=== PATIENT | male | born 1970 | race Caucasian/White ===

== ENCOUNTER → 2018-03-11 15:46 | Outpatient (CLI) | payer OTHER, MEDICAID, SELFPAY | PROVIDERS: Family Provider Family Medicine; PCP Family Medicine; Visit Provider Physician Assistant | DX: R39.9 Unspecified symptoms and signs involving the genitourinary system (principal) | CPT/HCPCS: 87077; 87086; 87147 ==

== ENCOUNTER → 2018-04-08 09:46 | Outpatient (CLI) | payer OTHER, MEDICAID, SELFPAY | PROVIDERS: Family Provider Family Medicine; PCP Family Medicine; Visit Provider Family Medicine | DX: R30.0 Dysuria (principal) | CPT/HCPCS: 87077; 87086 ==

== ENCOUNTER → 2018-04-28 09:09 | Outpatient (CLI) | payer OTHER, MEDICAID, SELFPAY ==
[2018-04-28 10:15] LABS: Add Manual Diff / Slide Review NO; Basophils Percent Auto 0.7 % (0-2); Eosinophils Percent Auto 2.9 % (2-4); Hematocrit 47.6 % (41-53); Hemoglobin 16.3 g/dL (13.5-17.5); Lymphocytes Percent Auto 32.5 % (25-40); Mean Corpuscular HGB Conc 34.4 % (30-36); Mean Corpuscular Hemoglobin 31.1 PG (26-34); Mean Corpuscular Volume 90.6 fL (80-100); Monocytes Percent Auto 8.5 % (3-14); Neutrophils Absolute Auto 4900 /uL (3000-5900); Neutrophils Percent Auto 55.4 % (50-75); Platelet Count 245 X10^3/uL (150-400); Red Blood Cell Count 5.25 X10^6/uL (4.5-5.9); Red Cell Distribution Width 13.2 % (11.6-14.8); White Blood Cell Count 8.9 X10^3/uL (4.5-11.0)
[2018-04-28 10:32] LABS: Alanine Aminotransferase 61 IU/L (21-72); Albumin 4.4 g/dL (3.5-5.0); Albumin Globulin Ratio 1.5 (1.0-2.8); Alkaline Phosphatase 76 U/L (38-126); Aspartate Aminotransferase 35 IU/L (17-59); BUN Creatinine Ratio 18.9 (6-22); Bilirubin Total 0.6 mg/dL (0.2-1.3); Blood Urea Nitrogen 17 mg/dL (9-20); Calcium 9.4 mg/dL (8.4-10.2); Carbon Dioxide 28 mmol/L (22-32); Chloride 101 mmol/L (98-107); Cholesterol 219 mg/dL (140-199); Estimated Glomerular Filt Rate > 60.0 mL/min (>60); Glucose 137 mg/dL (70-100); HDL Cholesterol 30 mg/dL (40-60); HEMOLYSIS 18 (0-50); LDL Cholesterol Calculated 133 mg/dL (<100); Potassium 4.6 mmol/L (3.4-5.1); Sodium 141 mmol/L (137-145); Total Protein 7.4 g/dL (6.3-8.2); Triglycerides 280 mg/dL (35-150)
[2018-04-28 11:01] LABS: Prostate Specific Antigen Scrn 0.276 ng/mL (0.1-4.0)
[2018-04-28 11:38] LABS: Thyroid Stimulating Hormone 1.17 uIU/mL (0.47-4.68)
== END ==
PROVIDERS: PCP Family Medicine; Visit Provider Family Medicine
DX: I10 Essential (primary) hypertension (principal)
CPT/HCPCS: 36415; 80053; 80061; 84443; 85025; G0103

== ENCOUNTER → 2018-08-03 08:49 | Outpatient (CLI) | payer OTHER, MEDICAID, SELFPAY ==
--- NOTE | 2018-08-03 08:51 | DI.US.S_ITS ---
PROCEDURE: US SCROTUM INDICATIONS: SCROTAL SWELLING TECHNIQUE: Real-time scanning was performed of the scrotum and testicles, with image documentation. Color and pulse Doppler interrogation was performed of both testicles. COMPARISON: None. FINDINGS: Right: Testicle measures 5.0 x 3.0 x 2.5 cm, and appears homogenous in echotexture. Epididymis is normal in overall size and morphology. There is a slightly superior to varicocele. Overlying scrotal skin is thickened, measuring up to 2.2 cm. Left: Testicle measures 4.8 x 3.1 x 2.5 cm, and appears homogeneous in echotexture. Epididymis is normal in overall size and morphology. There is a small hydrocele. No varicocele.. Overlying scrotal skin is thickened, measuring up to 1.5 cm. Doppler: Color and pulse Doppler demonstrate patent and symmetric arterial flow in both testicles. No definite increased vascularity within the testicles or scrotal skin. IMPRESSION: 1. Nonspecific scrotal skin thickening bilaterally without definite increased vascularity. The finding is nonspecific and the differential includes edema secondary to a nonspecific systemic process or a low-grade or atypical infection among other etiologies. Recommend correlation clinically. 2. Small bilateral hydroceles. 3. No definite evidence of epididymoorchitis. Dictated by: Abdiel Finney M.D. on 08/03/2018 at 9:56 Approved by: Abdiel Finney M.D. on 08/03/2018 at 10:02
== END ==
PROVIDERS: Family Provider Family Medicine; PCP Family Medicine; Visit Provider Physician Assistant
DX: N50.89 Other specified disorders of the male genital organs (principal); N43.3 Hydrocele, unspecified
CPT/HCPCS: 76870

== ENCOUNTER → 2018-11-11 06:51 | Outpatient (CLI) | payer OTHER, MEDICAID, SELFPAY ==
[2018-11-11 07:37] LABS: Hemoglobin A1C% w Est Avg Glu 8.1 % (4.0-6.0)
[2018-11-11 07:41] LABS: BUN Creatinine Ratio 21.1 (6-22); Blood Urea Nitrogen 19 mg/dL (9-20); Calcium 9.3 mg/dL (8.4-10.2); Carbon Dioxide 26 mmol/L (22-32); Chloride 99 mmol/L (98-107); Cholesterol 224 mg/dL (140-199); Estimated Glomerular Filt Rate > 60.0 mL/min (>60); Glucose 196 mg/dL (70-100); HDL Cholesterol 26 mg/dL (40-60); HEMOLYSIS 16 (0-50); Potassium 4.2 mmol/L (3.4-5.1); Sodium 137 mmol/L (137-145); Triglycerides 481 mg/dL (35-150)
== END ==
PROVIDERS: PCP Family Medicine; Visit Provider Family Medicine
DX: I10 Essential (primary) hypertension (principal)
CPT/HCPCS: 36415; 80048; 80061; 83036

== ENCOUNTER → 2018-12-15 19:45 | Outpatient (CLI) | payer OTHER, MEDICAID, SELFPAY | PROVIDERS: PCP Family Medicine; Visit Provider Physician Assistant | DX: N30.00 Acute cystitis without hematuria (principal) | CPT/HCPCS: 87077; 87086; 87186 ==

== ENCOUNTER → 2019-03-22 08:31 | Outpatient (CLI) | payer OTHER, MEDICAID, SELFPAY ==
[2019-03-22 11:00] LABS: Hemoglobin A1C% w Est Avg Glu 8.1 % (4.0-6.0)
[2019-03-22 11:42] LABS: Cholesterol 217 mg/dL (140-199); HDL Cholesterol 25 mg/dL (40-60); LDL Cholesterol Calculated 120 mg/dL (<100); Triglycerides 359 mg/dL (35-150)
== END ==
PROVIDERS: PCP Family Medicine; Visit Provider Family Medicine
DX: E78.2 Mixed hyperlipidemia (principal)
CPT/HCPCS: 36415; 80061; 83036

== ENCOUNTER → 2019-05-13 08:37 | Outpatient (CLI) | payer OTHER, MEDICAID, SELFPAY ==
[2019-05-13 09:27] LABS: Hemoglobin A1C% w Est Avg Glu 7.7 % (4.0-6.0)
[2019-05-13 09:36] LABS: Blood Urea Nitrogen 19 mg/dL (9-20); Calcium 9.1 mg/dL (8.4-10.2); Carbon Dioxide 30 mmol/L (22-32); Chloride 100 mmol/L (98-107); Cholesterol 172 mg/dL (140-199); Estimated Glomerular Filt Rate > 60.0 mL/min (>60); Glucose 165 mg/dL (70-100); HDL Cholesterol 27 mg/dL (40-60); HEMOLYSIS 21 (0-50); LDL Cholesterol Calculated 98 mg/dL (<100); Potassium 4.4 mmol/L (3.4-5.1); Sodium 136 mmol/L (137-145); Triglycerides 236 mg/dL (35-150)
== END ==
PROVIDERS: PCP Family Medicine; Visit Provider Family Medicine
DX: E78.2 Mixed hyperlipidemia (principal)
CPT/HCPCS: 36415; 80048; 80061; 83036

== ENCOUNTER → 2019-08-02 08:30 | Outpatient (CLI) | payer OTHER, MEDICAID, SELFPAY | PROVIDERS: PCP Family Medicine; Visit Provider Physician Assistant | DX: R30.0 Dysuria (principal) | CPT/HCPCS: 87086 ==

== ENCOUNTER → 2019-08-12 08:21 | Outpatient (CLI) | payer OTHER, MEDICAID, SELFPAY ==
[2019-08-12 09:21] LABS: Blood Urea Nitrogen 18 mg/dL (9-20); Calcium 9.6 mg/dL (8.4-10.2); Carbon Dioxide 26 mmol/L (22-32); Chloride 102 mmol/L (98-107); Estimated Glomerular Filt Rate > 60.0 mL/min (>60); Glucose 147 mg/dL (70-100); HEMOLYSIS < 15 (0-50); Potassium 4.1 mmol/L (3.4-5.1); Sodium 138 mmol/L (137-145)
== END ==
PROVIDERS: PCP Family Medicine; Referring Provider Family Medicine; Visit Provider Family Medicine
DX: E11.9 Type 2 diabetes mellitus without complications (principal)
CPT/HCPCS: 36415; 80048; 83036

== ENCOUNTER → 2019-11-11 07:40 | Outpatient (CLI) | payer OTHER, MEDICAID, SELFPAY ==
[2019-11-11 08:18] LABS: Hemoglobin A1C% w Est Avg Glu 7.5 % (4.0-6.0)
[2019-11-11 08:36] LABS: Blood Urea Nitrogen 20 mg/dL (9-20); Calcium 8.9 mg/dL (8.4-10.2); Carbon Dioxide 26 mmol/L (22-32); Chloride 102 mmol/L (98-107); Cholesterol 166 mg/dL (140-199); Estimated Glomerular Filt Rate > 60.0 mL/min (>60); Glucose 164 mg/dL (70-100); HDL Cholesterol 25 mg/dL (40-60); HEMOLYSIS < 15 (0-50); LDL Cholesterol Calculated 97 mg/dL (<100); Potassium 4.2 mmol/L (3.4-5.1); Sodium 137 mmol/L (137-145); Triglycerides 221 mg/dL (35-150)
== END ==
PROVIDERS: PCP Family Medicine; Referring Provider Family Medicine; Visit Provider Family Medicine
DX: E11.9 Type 2 diabetes mellitus without complications (principal)
CPT/HCPCS: 36415; 80048; 80061; 83036

== ENCOUNTER → 2020-03-07 07:44 | Outpatient (CLI) | payer OTHER, MEDICAID, SELFPAY ==
[2020-03-07 08:50] LABS: Hemoglobin A1C% w Est Avg Glu 7.4 % (4.0-6.0)
[2020-03-07 09:02] LABS: BUN Creatinine Ratio 21.3 (6-22); Blood Urea Nitrogen 19 mg/dL (9-20); Carbon Dioxide 27 mmol/L (22-32); Chloride 102 mmol/L (98-107); Estimated Glomerular Filt Rate > 60.0 mL/min (>60); Glucose 173 mg/dL (70-100); HEMOLYSIS < 15 (0-50); Potassium 4.3 mmol/L (3.4-5.1); Sodium 135 mmol/L (137-145)
[2020-03-07 09:50] LABS: Creatinine Urine Random 108.9 mg/dL
[2020-03-07 09:53] LABS: Microalbumi Creatinin Ratio Ur 6.4 ug/mg CR (<30); Microalbumin Urine Random 0.7 mg/dL (0-1.6)
== END ==
PROVIDERS: PCP Family Medicine; Referring Provider Family Medicine; Visit Provider Family Medicine
DX: E11.9 Type 2 diabetes mellitus without complications (principal)
CPT/HCPCS: 36415; 80048; 82043; 82570; 83036

== ENCOUNTER → 2020-08-10 07:57 | Outpatient (CLI) | payer OTHER, MEDICAID, SELFPAY ==
[2020-08-10 08:35] LABS: Hemoglobin A1C% w Est Avg Glu 7.8 % (4.0-6.0)
[2020-08-10 08:57] LABS: Alanine Aminotransferase 37 IU/L (<50); Albumin Globulin Ratio 1.4 (1.0-2.8); Alkaline Phosphatase 75 U/L (38-126); Aspartate Aminotransferase 27 IU/L (17-59); BUN Creatinine Ratio 22.6 (6-22); Bilirubin Total 0.4 mg/dL (0.2-1.3); Blood Urea Nitrogen 19 mg/dL (9-20); Calcium 9.3 mg/dL (8.4-10.2); Carbon Dioxide 29 mmol/L (22-32); Chloride 103 mmol/L (98-107); Cholesterol 168 mg/dL (140-199); Estimated Glomerular Filt Rate > 60.0 mL/min (>60); Globulin 2.9 g/dL (1.7-4.1); Glucose 185 mg/dL (70-100); HDL Cholesterol 30 mg/dL (40-60); HEMOLYSIS < 15 (0-50); LDL Cholesterol Calculated 91 mg/dL (<100); Sodium 135 mmol/L (137-145); Total Protein 6.9 g/dL (6.3-8.2); Triglycerides 234 mg/dL (35-150)
[2020-08-10 09:29] LABS: TSH w/ Reflex to FT4 1.89 uIU/mL (0.47-4.68)
== END ==
PROVIDERS: PCP Family Medicine; Referring Provider Family Medicine; Visit Provider Family Medicine
DX: E11.9 Type 2 diabetes mellitus without complications (principal); E78.2 Mixed hyperlipidemia; I10 Essential (primary) hypertension; R53.83 Other fatigue
CPT/HCPCS: 36415; 80053; 80061; 83036; 84443

== ENCOUNTER → 2020-11-28 07:23 | Outpatient (CLI) | payer OTHER, MEDICAID, SELFPAY ==
[2020-11-28 08:33] LABS: Hemoglobin A1C% w Est Avg Glu 7.4 % (4.0-6.0)
[2020-11-28 08:53] LABS: Alanine Aminotransferase 40 IU/L (<50); Albumin 3.8 g/dL (3.5-5.0); Albumin Globulin Ratio 1.5 (1.0-2.8); Alkaline Phosphatase 78 U/L (38-126); Aspartate Aminotransferase 29 IU/L (17-59); BUN Creatinine Ratio 23.1 (6-22); Bilirubin Total 0.4 mg/dL (0.2-1.3); Blood Urea Nitrogen 21 mg/dL (9-20); Calcium 9.5 mg/dL (8.4-10.2); Carbon Dioxide 25 mmol/L (22-32); Chloride 103 mmol/L (98-107); Estimated Glomerular Filt Rate > 60.0 mL/min (>60); Globulin 2.6 g/dL (1.7-4.1); Glucose 161 mg/dL (70-100); HEMOLYSIS < 15 (0-50); Potassium 4.4 mmol/L (3.4-5.1); Sodium 137 mmol/L (137-145); Total Protein 6.4 g/dL (6.3-8.2)
== END ==
PROVIDERS: PCP Family Medicine; Referring Provider Family Medicine; Visit Provider Family Medicine
DX: E11.9 Type 2 diabetes mellitus without complications (principal)
CPT/HCPCS: 36415; 80053; 83036

== ENCOUNTER → 2021-02-23 07:43 | Outpatient (CLI) | payer OTHER, MEDICAID, SELFPAY ==
[2021-02-23 09:15] LABS: Hemoglobin A1C% w Est Avg Glu 6.9 % (4.0-6.0)
[2021-02-23 09:21] LABS: Alanine Aminotransferase 40 IU/L (<50); Albumin Globulin Ratio 1.4 (1.0-2.8); Alkaline Phosphatase 58 U/L (38-126); Aspartate Aminotransferase 39 IU/L (17-59); Bilirubin Total 0.7 mg/dL (0.2-1.3); Blood Urea Nitrogen 18 mg/dL (9-20); Calcium 9.3 mg/dL (8.4-10.2); Carbon Dioxide 28 mmol/L (22-32); Chloride 103 mmol/L (98-107); Estimated Glomerular Filt Rate > 60.0 mL/min (>60); Globulin 2.9 g/dL (1.7-4.1); Glucose 169 mg/dL (70-100); HEMOLYSIS 55 (0-50); Potassium 4.5 mmol/L (3.4-5.1); Sodium 136 mmol/L (137-145); Total Protein 6.9 g/dL (6.3-8.2)
== END ==
PROVIDERS: PCP Family Medicine; Referring Provider Family Medicine; Visit Provider Family Medicine
DX: I10 Essential (primary) hypertension (principal); E11.9 Type 2 diabetes mellitus without complications; E78.2 Mixed hyperlipidemia; R53.83 Other fatigue
CPT/HCPCS: 36415; 80053; 83036

== ENCOUNTER → 2021-05-15 15:18 | Outpatient (CLI) | payer OTHER, MEDICAID, SELFPAY ==
--- NOTE | 2021-05-15 15:58 | DI.RAD.S_ITS ---
PROCEDURE: XR CHEST 2V INDICATIONS: Cough TECHNIQUE: 2 views of the chest were acquired. COMPARISON: None. FINDINGS: Surgical changes and devices: None. Lungs and pleura: Pleural interstitial infiltrates are seen. No pleural effusions or pneumothorax. Mediastinum: Mediastinal contours are normal. Heart size is normal. Bones and chest wall: No suspicious bony abnormalities. Soft tissues appear unremarkable. IMPRESSION: Minimal patchy bilateral infiltrates can be seen. Please consider COVID pneumonia. Dictated by: Jose Camarena M.D. on 05/15/2021 at 15:13 Approved by: Jose Camarena M.D. on 05/15/2021 at 15:13
[2021-05-15 16:25] LABS: COVID19 -Nasal RAPID Negative (Negative)
== END ==
PROVIDERS: PCP Family Medicine; Referring Provider Nurse Practitioner Family; Visit Provider Nurse Practitioner Family
DX: Z20.822 Contact with and (suspected) exposure to COVID-19 (principal)
CPT/HCPCS: 71046; 87635

== ENCOUNTER → 2021-06-27 07:51 | Outpatient (CLI) | payer OTHER, MEDICAID, SELFPAY ==
[2021-06-27 08:36] LABS: Hemoglobin A1C% w Est Avg Glu 7.1 % (4.0-6.0)
[2021-06-27 08:46] LABS: Alanine Aminotransferase 65 IU/L (<50); Albumin 4.2 g/dL (3.5-5.0); Albumin Globulin Ratio 1.5 (1.0-2.8); Alkaline Phosphatase 63 U/L (38-126); Aspartate Aminotransferase 37 IU/L (17-59); BUN Creatinine Ratio 19.8 (6-22); Bilirubin Total 0.7 mg/dL (0.2-1.3); Blood Urea Nitrogen 17 mg/dL (9-20); Calcium 9.1 mg/dL (8.4-10.2); Carbon Dioxide 29 mmol/L (22-32); Chloride 102 mmol/L (98-107); Estimated Glomerular Filt Rate > 60.0 mL/min (>60); Globulin 2.8 g/dL (1.7-4.1); Glucose 148 mg/dL (70-100); HEMOLYSIS 25 (0-50); Potassium 4.4 mmol/L (3.4-5.1); Sodium 138 mmol/L (137-145)
== END ==
PROVIDERS: PCP Family Medicine; Referring Provider Family Medicine; Visit Provider Family Medicine
DX: E11.9 Type 2 diabetes mellitus without complications (principal); I10 Essential (primary) hypertension; G89.29 Other chronic pain
CPT/HCPCS: 36415; 80053; 83036

== ENCOUNTER → 2021-12-04 12:13 | Outpatient (CLI) | payer OTHER, MEDICAID, SELFPAY | PROVIDERS: PCP Family Medicine; Visit Provider Physician Assistant | DX: R30.0 Dysuria (principal) | CPT/HCPCS: 81002; 82948; 87077; 87086; 87186 ==

== ENCOUNTER → 2022-01-25 08:26 | Outpatient (CLI) | payer OTHER, MEDICAID, SELFPAY | PROVIDERS: PCP Family Medicine; Visit Provider Nurse Practitioner Family | DX: L98.9 Disorder of the skin and subcutaneous tissue, unspecified (principal) | CPT/HCPCS: 87070; 87147; 87205 ==

== ENCOUNTER → 2022-02-04 07:23 | Outpatient (CLI) | payer OTHER, MEDICAID, SELFPAY ==
[2022-02-04 08:47] LABS: Add Manual Diff / Slide Review NO; Basophils Absolute Auto 100 /uL (0-100); Basophils Percent Auto 0.8 % (0-2); Eosinophils Absolute Auto 300 /uL (0-450); Eosinophils Percent Auto 3.1 % (2-4); Hematocrit 46.8 % (41-53); Hemoglobin 16.1 g/dL (13.5-17.5); Lymphocytes Absolute Auto 3400 /uL (1100-4500); Lymphocytes Percent Auto 34.4 % (25-40); Mean Corpuscular HGB Conc 34.3 % (30-36); Mean Corpuscular Volume 90.4 fL (80-100); Monocytes Absolute Auto 800 /uL (0-900); Monocytes Percent Auto 8.5 % (3-14); Neutrophils Absolute Auto 5300 /uL (1500-7000); Neutrophils Percent Auto 53.2 % (50-75); Platelet Count 259 X10^3/uL (150-400); Red Blood Cell Count 5.18 X10^6/uL (4.5-5.9); Red Cell Distribution Width 13.3 % (11.6-14.8)
[2022-02-04 09:08] LABS: Alanine Aminotransferase 31 IU/L (<50); Albumin 4.1 g/dL (3.5-5.0); Albumin Globulin Ratio 1.4 (1.0-2.8); Alkaline Phosphatase 63 U/L (38-126); Aspartate Aminotransferase 26 IU/L (17-59); BUN Creatinine Ratio 19.3 (6-22); Bilirubin Total 0.6 mg/dL (0.2-1.3); Blood Urea Nitrogen 17 mg/dL (9-20); Calcium 9.1 mg/dL (8.4-10.2); Carbon Dioxide 27 mmol/L (22-32); Chloride 103 mmol/L (98-107); Cholesterol 162 mg/dL (140-199); Estimated Glomerular Filt Rate > 60 mL/min (>60); Globulin 2.9 g/dL (1.7-4.1); Glucose 148 mg/dL (70-100); HDL Cholesterol 27 mg/dL (40-60); HEMOLYSIS < 15 (0-50); LDL Cholesterol Calculated 89 mg/dL (<100); Sodium 137 mmol/L (137-145); Triglycerides 230 mg/dL (35-150)
[2022-02-04 09:09] LABS: Hemoglobin A1C% w Est Avg Glu 7.1 % (4.0-6.0)
[2022-02-04 09:37] LABS: Prostate Specific Antigen Scrn 0.472 ng/mL (0.1-4.0)
[2022-02-04 10:14] LABS: Thyroid Stimulating Hormone 1.73 uIU/mL (0.47-4.68)
== END ==
PROVIDERS: PCP Family Medicine; Referring Provider Family Medicine; Visit Provider Family Medicine
DX: E11.9 Type 2 diabetes mellitus without complications (principal); E78.2 Mixed hyperlipidemia; I10 Essential (primary) hypertension; N40.1 Benign prostatic hyperplasia with lower urinary tract symptoms; R39.14 Feeling of incomplete bladder emptying; E78.5 Hyperlipidemia, unspecified
CPT/HCPCS: 36415; 80053; 80061; 83036; 84443; 85025; G0103

== ENCOUNTER → 2022-06-12 09:09 | Outpatient (CLI) | payer OTHER, MEDICAID, SELFPAY ==
[2022-06-12 10:38] LABS: Influenza A - CEPHEID Flu A NEGATIVE (NEGATIVE); Influenza B - CEPHEID Flu B NEGATIVE (NEGATIVE); Respiratory Syncytial Virus Negative (Negative)
[2022-06-12 10:52] LABS: COVID-19 CEPHEID 4-PLEX PCR Negative (Negative)
== END ==
PROVIDERS: PCP Family Medicine; Referring Provider Nurse Practitioner Family; Visit Provider Nurse Practitioner Family
DX: R30.0 Dysuria (principal); R50.9 Fever, unspecified; Z20.822 Contact with and (suspected) exposure to COVID-19
CPT/HCPCS: 0241U; 81002; 87077; 87086; 87186

== ENCOUNTER → 2022-09-16 15:00 | Outpatient (CLI) | payer OTHER, MEDICAID, SELFPAY | PROVIDERS: PCP Family Medicine; Visit Provider Physician Assistant | DX: N39.0 Urinary tract infection, site not specified (principal) | CPT/HCPCS: 81002; 87077; 87086; 87186 ==

== ENCOUNTER → 2022-10-04 08:01 | Outpatient (CLI) | payer OTHER, MEDICAID, SELFPAY ==
[2022-10-04 08:57] LABS: Add Manual Diff / Slide Review NO; Basophils Absolute Auto 100 /uL (0-100); Basophils Percent Auto 0.7 % (0-2); Eosinophils Absolute Auto 200 /uL (0-450); Lymphocytes Absolute Auto 2500 /uL (1100-4500); Lymphocytes Percent Auto 27.7 % (25-40); Mean Corpuscular HGB Conc 34.1 % (30-36); Mean Corpuscular Hemoglobin 30.8 PG (26-34); Mean Corpuscular Volume 90.4 fL (80-100); Monocytes Absolute Auto 700 /uL (0-900); Monocytes Percent Auto 8.2 % (3-14); Neutrophils Absolute Auto 5500 /uL (1500-7000); Neutrophils Percent Auto 61.4 % (50-75); Platelet Count 234 X10^3/uL (150-400); Red Cell Distribution Width 13.4 % (11.6-14.8)
[2022-10-04 09:36] LABS: Alanine Aminotransferase 30 IU/L (<50); Albumin 3.9 g/dL (3.5-5.0); Albumin Globulin Ratio 1.3 (1.0-2.8); Alkaline Phosphatase 64 U/L (38-126); Aspartate Aminotransferase 25 IU/L (17-59); Bilirubin Total 0.6 mg/dL (0.2-1.3); Blood Urea Nitrogen 17 mg/dL (9-20); Calcium 9.4 mg/dL (8.4-10.2); Carbon Dioxide 25 mmol/L (22-32); Chloride 103 mmol/L (98-107); Cholesterol 172 mg/dL (140-199); Estimated Glomerular Filt Rate > 60 mL/min (>60); Glucose 155 mg/dL (70-100); HDL Cholesterol 33 mg/dL (40-60); HEMOLYSIS < 15 (0-50); LDL Cholesterol Calculated 93 mg/dL (<100); Potassium 4.6 mmol/L (3.4-5.1); Sodium 137 mmol/L (137-145); Total Protein 6.9 g/dL (6.3-8.2); Triglycerides 232 mg/dL (35-150)
[2022-10-04 10:06] LABS: Prostate Specific Antigen 0.264 ng/mL (0.10-4.00)
[2022-10-05 10:19] LABS: Labcorp Hemoglobin (Hb) A1c 7.3 % (4.8-5.6)
== END ==
PROVIDERS: PCP Family Medicine; Referring Provider Family Medicine; Visit Provider Family Medicine
DX: E11.9 Type 2 diabetes mellitus without complications (principal); E78.2 Mixed hyperlipidemia; N40.0 Benign prostatic hyperplasia without lower urinary tract symptoms
CPT/HCPCS: 36415; 80053; 80061; 83036; 84153; 85025

== ENCOUNTER → 2022-11-11 13:16 | Outpatient (CLI) | payer OTHER, MEDICAID, SELFPAY | PROVIDERS: PCP Family Medicine; Visit Provider Registered Nurse | DX: R30.0 Dysuria (principal) | CPT/HCPCS: 81002; 87077; 87086; 87186 ==

== ENCOUNTER 2022-11-14 13:34 | Emergency (ER) | payer OTHER, MEDICAID, SELFPAY ==
[2022-11-14 13:42] VITALS: BP 173/79; PULSE 100; RESP 18; TEMP 37.6; O2SAT 95; BMI 44.9
[2022-11-14 14:53] LABS: Appearance Urine UA CLOUDY; Bilirubin Urine UA 1+ (NEGATIVE); Color Urine UA YELLOW; Glucose Urine UA NEGATIVE (Negative); Ketones Urine UA NEGATIVE (NEGATIVE); Leukocyte Esterase Urine UA 3+ (NEGATIVE); Nitrite Urine UA POSITIVE (Negative); Occult Blood Urine UA 3+ (Negative); Protein Urine UA 3+ (Negative); pH Urine UA 8.5 (4.5-8.0)
[2022-11-14 15:05] LABS: Ictotest Urine Negative (Negative)
[2022-11-14 15:06] LABS: RBC Urine 30-100/HPF (0-5/HPF); Squamous Epithelial Cell Urine 1-5 /HPF (0-5/HPF); WBC Urine >100/HPF (0-5/HPF)
[2022-11-14 15:07] LABS: Bacteria Urine Many (>30); Culture Indicated Urine Specimen Cultured
--- NOTE | 2022-11-14 19:18 | ED_ITS ---
HPI - Male Genitourinary General Chief complaint: Urogenital-Male Stated complaint: Blood in urine, pain Time Seen by Provider: 11/14/22 17:52 Source: patient Mode of arrival: Ambulatory History of Present Illness HPI Narrative: This is a 52-year-old male presents to the emergency department due to continued dysuria for the last 4 days. He was seen at the walk-in clinic 3 days ago and was given a course of Bactrim which he has been taking as prescribed but reports continued symptoms. He is also reporting a small amount of white discharge coming from the tip of his penis. Denies any flank pain, abdominal pain, fevers, nausea, vomiting, or any other concerning signs or symptoms. Related Data Previous Rx's Medication Instructions Recorded blood-glucose meter #1 ea 09/05/20 lancets 33 gauge (BD Ultra Fine #100 ea 09/05/20 Lancets) mupirocin 2 % topical ointment 1 applic topical TID #22 grams 01/25/22 ketoconazole 2 % topical cream 1 applic topical BID #30 grams 02/08/22 blood sugar diagnostic (Blood #100 ea 03/15/22 Glucose Test strips) blood sugar diagnostic (Blood #100 ea 03/15/22 Glucose Test strips) tamsulosin 0.4 mg capsule (Flomax) 0.4 mg PO QDAY #90 caps 04/09/22 clotrimazole 1 % topical cream 1 applic topical BID #45 grams 05/13/22 ondansetron 4 mg disintegrating 4 mg PO Q8H PRN nausea and 06/10/22 tablet vomiting #12 tabs clobetasol 0.05 % topical cream 1 applic topical TID #60 grams 07/11/22 lisinopril 20 mg tablet 20 mg PO QDAY #90 tabs 07/11/22 metformin 1,000 mg tablet 1,000 mg PO BID #180 tabs 07/11/22 mupirocin 2 % topical ointment 1 applic topical TID #15 grams 07/11/22 sulfamethoxazole 800 1 tab PO Q12H #20 tabs 09/16/22 mg-trimethoprim 160 mg tablet (Bactrim DS) albuterol sulfate 90 mcg/actuation See Rx Instructions .Route 10/14/22 aerosol inhaler .COMPLEX #6.7 grams atorvastatin 10 mg tablet See Rx Instructions .Route 10/14/22 .COMPLEX #90 tabs chlorhexidine gluconate 0.12 % 15 ml buccal BID #473 mL 10/14/22 mouthwash hydroxyzine pamoate 50 mg capsule See Rx Instructions .Route 10/14/22 .COMPLEX #90 caps semaglutide 0.25 mg or 0.5 mg (2 0.5 mg (0.8 mL) SUBCUT QWEEK #3 mL 10/14/22 mg/3 mL) subcutaneous pen injector (Ozempic) varenicline 0.5 mg (11)-1 mg (42) See Rx Instructions PO PER PKG DIR 10/14/22 tablets in a dose pack (Chantix #53 ea Starting Month Box) varenicline 1 mg tablet (Chantix 1 mg PO BID #56 tabs 10/14/22 Continuing Month Box) doxycycline hyclate 100 mg capsule 100 mg PO BID #20 caps 10/20/22 hydrocodone 7.5 mg-acetaminophen 1 tab PO QID PRN pain #120 tabs 11/05/22 325 mg tablet sulfamethoxazole 800 1 tab PO BID uti 10 days #20 tabs 11/11/22 mg-trimethoprim 160 mg tablet (Bactrim DS) cefdinir 300 mg capsule 300 mg PO BID #14 caps 11/14/22 cefdinir 300 mg capsule 300 mg PO BID #14 caps 11/14/22 cefdinir 300 mg capsule 300 mg PO Q12H 7 days #14 caps 11/14/22 Allergies Allergy/AdvReac Type Severity Reaction Status Date / Time alprazolam [From XANAX] Allergy Severe VOMTING Verified 11/14/22 13:48 diazepam [From VALIUM] Allergy Severe VOMITING Verified 11/14/22 13:48 lorazepam [LORAZEPAM] Allergy Severe VOMITING Verified 11/14/22 13:48 Review of Systems Review of Systems Narrative: GENERAL: Denies chills, fatigue, malaise, fever, sweats. HEENT: Denies sinus pain, ear pain, sore throat, difficulty swallowing, dizziness. RESPIRATORY: Denies dyspnea, cough, wheezing, hemoptysis, sputum. CARDIOVASCULAR: Denies chest pain, palpitations, orthopnea, edema, GASTROINTESTINAL: Denies nausea, vomiting, abdominal pain, diarrhea, constipation, melena. : Reports urinary frequency and dysuria. Reports penile discharge MUSCULOSKELETAL: denies weakness, joint pain, or bony pain SKIN: Denies rash, skin lesions, or other NEUROLOGIC: Denies weakness, headache, numbness, change in speech, confusion, seizures, incoordination. PSYCHIATRIC: No concerning psychosocial issues. 12 point review of systems is negative except for those stated above Patient History Medical History Anxiety Benign prostatic hyperplasia Cellulitis of right lower extremity Hypertension Osteoarthritis UTI (urinary tract infection) Surgical History No history of previous surgery (10/11/13) Social History Smoking Status: Current every day smoker Tobacco: How many years used: 35 Smokeless tobacco user: chewing tobacco (former ) quit status: not considering quitting alcohol intake: former (stopped 2003) substance use type: former substance user and marijuana (former, stopped 2003) Smoking Status: Current every day smoker alcohol intake frequency: 0-2 drinks per day Substance Use Type: does not use Exam Narrative Exam Narrative: GENERAL: Well-developed patient, in mild distress. HEAD: Atraumatic. Normocephalic. EYES: Pupils equal round and reactive. Extraocular motions intact. No scleral icterus. No injection or drainage. ENT: Nose without bleeding, purulent drainage. Throat without erythema, tonsillar hypertrophy or exudate. Airway patent. NECK: Trachea midline. Non tender CARDIOVASCULAR: Regular rate and rhythm without murmurs, gallops, or rubs. RESPIRATORY: Clear to auscultation. Breath sounds equal bilaterally. No wheezes, rales, or rhonchi. GASTROINTESTINAL: Abdomen soft, non-tender, nondistended. EXTREMITIES: No edema or joint tenderness. BACK: Nontender without deformity or crepitance. No flank tenderness. NEURO: AOx3. SKIN: No rash or erythema of visible areas : Testicles and penis unremarkable on exam Initial Vital Signs Initial Vital Signs: Vital Signs Temperature 99.6 F 11/14/22 13:42 Pulse Rate 100 H 11/14/22 13:42 Respiratory Rate 18 11/14/22 13:42 Blood Pressure 173/79 H 11/14/22 13:42 Pulse Oximetry 95 11/14/22 13:42 Oxygen Delivery Method Room Air 11/14/22 13:42 Course Orders Ordered: Discontinued Medications Cefdinir (Cefdinir 300 Mg Capsule) 300 mg PO NOW ONE Stop: 11/14/22 19:57 Last Admin: 11/14/22 20:06 Dose: 300 mg Documented By: SHANI Vital Signs Vital signs: Vital Signs - 8 hr 11/14/22 13:42 11/14/22 19:42 Temperature 99.6 F 98.9 F Pulse Rate 100 H 78 Respiratory Rate 18 18 Blood Pressure 173/79 H 134/69 Pulse Oximetry 95 93 Oxygen Delivery Method Room Air MDM - Male Genitourinary Lab Data Labs: Lab Results 11/14/22 11/14/22 Range/Units 14:40 14:40 Urine Color Yellow Urine Appearance Cloudy Urine pH 8.5 H (4.5-8.0) Ur Specific Reading 1.020 (1.000-1.035) Urine Protein 3+ H (Negative) Urine Glucose (UA) Negative (Negative) g/dL Urine Ketones Negative (NEGATIVE) Urine Occult Blood 3+ H (Negative) Urine Nitrate Positive H (Negative) Urine Bilirubin 1+ H (NEGATIVE) Ur Bilirubin Confirm Negative (Negative) Urine Urobilinogen 1.0 (0.2) E.U./dL Ur Leukocyte Esterase 3+ H (NEGATIVE) Urine RBC 30-100/hpf H (0-5/HPF) Urine WBC >100/hpf H (0-5/HPF) Ur Squamous Epith Cells 1-5 /hpf (0-5/HPF) Urine Bacteria Many (>30) H (None) Ur Culture Indicated? Specimen cultured Ur Chlamydia DNA (PCR) Cancelled N gonorrhoeae DNA (PCR) Cancelled MDM Narrative Medical decision making narrative: MDM * differential diagnosis includes but not limited to UTI, gonorrhea, chlamydia * Prior records reviewed: Patient was seen in the walk-in clinic 3 days ago where he had a urinalysis which showed evidence of UTI and Bactrim as prescribed. Culture was also taken. * My lab interpretation: Labwork shows evidence of acute UTI. * My imgaing interpretation: None obtained * Clinical Decision Rules/Scores evaluated: None * Independent discussions with: None ED Course: This is a 52-year-old male presents to the emergency department due to continued UTI symptoms after beginning a course of Bactrim 3 days ago. Cultures were reviewed. Cefdinir will be prescribed as may be increasingly susceptible to this. Low concern for pyelonephritis at this time. G/C also ordered but per lab the test failed 2/2 hematuria. Shared Decision Making: Discussed plan with patient who is comfortable with the plan Social Considerations: None Disposition: Discharged to home Discharge Plan Departure Patient Disposition: Home Clinical Impression: Acute UTI Instructions: DI for Urinary Tract Infection (UTI) Activity Restrictions/Additional Instructions: Thank you for coming to the [facility] Emergency Department today. You may take the written prescription to any pharmacy you would like to see if they have the medication. This should also be prescription for Cefdinir waiting for your [facility] as we discussed for tomorrow. I hope you feel better soon. Prescriptions: New cefdinir 300 mg capsule 300 mg PO BID Qty: 14 0RF cefdinir 300 mg capsule 300 mg PO BID Qty: 14 0RF No Action doxycycline hyclate 100 mg capsule 100 mg PO BID Qty: 20 0RF sulfamethoxazole-trimethoprim [Bactrim DS] 800-160 mg tablet 1 tab PO BID 10 Days Qty: 20 0RF mupirocin 2 % ointment 1 applic topical TID Qty: 22 0RF sulfamethoxazole-trimethoprim [Bactrim DS] 800-160 mg tablet 1 tab PO Q12H Qty: 20 0RF (DME) Blood Glucose Test Strip See Rx Instructions .ROUTE .MEDSUPPLY Qty: 100 6RF Hold Instructions: Dosage change Rx Instructions: Use to test blood glucose twice daily. (DME) Blood Glucose Test Strip See Rx Instructions .Route Qty: 100 6RF Rx Instructions: As directed to check blood sugar four times daily tamsulosin [Flomax] 0.4 mg capsule 0.4 mg PO QDAY Qty: 90 3RF clotrimazole 1 % cream 1 applic TOP BID Qty: 45 5RF Rx Instructions: Apply to affected area. ondansetron 4 mg tablet,disintegrating 4 mg PO Q8H PRN (Reason: nausea and vomiting) Qty: 12 0RF Ozempic 0.25 mg or 0.5 mg (2 mg/3 mL) pen injector 0.5 mg SUBCUT QWEEK Qty: 3 5RF Rx Instructions: Start at 0.25 mg him we x1 month then advanced to 0.5 mg hydrocodone-acetaminophen 7.5-325 mg tablet 1 tab PO QID PRN (Reason: pain) Qty: 120 0RF Rx Instructions: Take one tab by mouth three to four times daily as needed for pain. Exempt. cefdinir 300 mg capsule 300 mg PO Q12H 7 Days Qty: 14 0RF (DME) lancets [BD Ultra Fine Lancets] 33 gauge misc See Rx Instructions .ROUTE .MEDSUPPLY Qty: 100 6RF Rx Instructions: Use to test blood glucose twice daily (DME) blood-glucose meter Kit See Rx Instructions .ROUTE .MEDSUPPLY Qty: 1 0RF Rx Instructions: Use to test blood glucose BID ketoconazole 2 % cream 1 applic topical BID Qty: 30 5RF clobetasol 0.05 % cream 1 applic TOP TID Qty: 60 1RF Rx Instructions: Apply to affected area. metformin 1,000 mg tablet 1,000 mg PO BID Qty: 180 3RF lisinopril 20 mg tablet 20 mg PO QDAY Qty: 90 3RF mupirocin 2 % ointment 1 applic topical TID Qty: 15 1RF atorvastatin 10 mg tablet See Rx Instructions .ROUTE .COMPLEX Qty: 90 3RF Dose Instruction: TAKE ONE TABLET BY MOUTH ONE TIME DAILY Rx Instructions: TAKE ONE TABLET BY MOUTH ONE TIME DAILY albuterol sulfate 90 mcg/actuation HFA aerosol inhaler See Rx Instructions .ROUTE .COMPLEX Qty: 6.7 2RF Dose Instruction: Inhale two puffs by mouth into the lungs every 6 hours as needed for shortness of breath or wheezing. Rx Instructions: Inhale two puffs by mouth into the lungs every 6 hours as needed for shortness of breath or wheezing. chlorhexidine gluconate 0.12 % mouthwash 15 ml buccal BID Qty: 473 3RF hydroxyzine pamoate 50 mg capsule See Rx Instructions .ROUTE .COMPLEX Qty: 90 1RF Dose Instruction: TAKE ONE CAPSULE BY MOUTH ONCE DAILY NEEDED FOR NAUSEA OR VOMITING AND TAKE ONE CAPSULE BY MOUTH TWO TIMES DAILY NEEDED FOR ITCHING. Rx Instructions: TAKE ONE CAPSULE BY MOUTH ONCE DAILY NEEDED FOR NAUSEA OR VOMITING AND TAKE ONE CAPSULE BY MOUTH TWO TIMES DAILY NEEDED FOR ITCHING. varenicline [Chantix Starting Month Box] 0.5 mg (11)- 1 mg (42) tablets,dose pack See Rx Instructions PO PER PKG DIR Qty: 53 0RF Rx Instructions: PO PER PKG DIR varenicline [Chantix Continuing Month Box] 1 mg tablet 1 mg PO BID Qty: 56 1RF Referrals: Siddharth Dash DO [Primary Care Provider] - Stand Alone Forms: Patient Portal/API
[2022-11-14 19:42] VITALS: BP 134/69; PULSE 78; RESP 18; TEMP 37.2; O2SAT 93
[2022-11-14] MEDS: CEFDINIR 300 MG CAPSULE PO (20:06)
== END 2022-11-14 20:02 | disposition home or self-care (01) ==
PROVIDERS: Emergency Medicine; Emergency Provider Physician Assistant Medical; PCP Family Medicine
DX: N39.0 Urinary tract infection, site not specified (principal)
CPT/HCPCS: 81001; 87077; 87086; 87186; 99283

== ENCOUNTER → 2022-11-23 09:21 | Outpatient (CLI) | payer OTHER, MEDICAID, SELFPAY ==
[2022-11-23 10:02] LABS: Appearance Urine UA CLEAR; Bilirubin Urine UA NEGATIVE (NEGATIVE); Color Urine UA YELLOW; Glucose Urine UA NEGATIVE (Negative); Ketones Urine UA NEGATIVE (NEGATIVE); Leukocyte Esterase Urine UA TRACE (NEGATIVE); Nitrite Urine UA NEGATIVE (Negative); Occult Blood Urine UA NEGATIVE (Negative); Protein Urine UA NEGATIVE (Negative); Urobilinogen Urine UA 0.2 E.U./dL (0.2)
[2022-11-23 11:15] LABS: BUN Creatinine Ratio 16.7 (6-22); Blood Urea Nitrogen 15 mg/dL (9-20); Estimated Glomerular Filt Rate > 60 mL/min (>60)
[2022-11-23 12:21] LABS: RBC Urine 1-5/HPF (0-5/HPF); Squamous Epithelial Cell Urine 5-10 /HPF (0-5/HPF); WBC Urine 1-5/HPF (0-5/HPF)
[2022-11-23 12:22] LABS: Bacteria Urine Few (2-10)
[2022-11-23 12:24] LABS: Calcium Oxalate Crystals Urine Moderate; Culture Indicated Urine Specimen Cultured
== END ==
PROVIDERS: PCP Family Medicine; Referring Provider Family Medicine; Visit Provider Family Medicine
DX: N39.0 Urinary tract infection, site not specified (principal); R31.9 Hematuria, unspecified
CPT/HCPCS: 36415; 81001; 82565; 84520; 87086

== ENCOUNTER → 2022-11-26 08:38 | Outpatient (CLI) | payer OTHER, MEDICAID, SELFPAY ==
--- NOTE | 2022-11-26 08:41 | DI.CT.S_ITS ---
PROCEDURE: CT ABDOMEN PELVIS WO/W CON INDICATIONS: Eval and Treat Gross hematuria TECHNIQUE: Optional 5 mm thick noncontrast images acquired from the diaphragm to the symphysis pubis. After the administration of intravenous contrast, 5 mm thick images acquired from the diaphragm to the symphysis pubis after a 10-minute delay. 2 mm thick coronal and sagittal reformats were then performed of the kidneys and ureters. For radiation dose reduction, the following was used: automated exposure control, adjustment of mA and/or kV according to patient size. COMPARISON: None. FINDINGS: Image quality: Excellent. Lung bases: Lung bases are clear. Heart size is normal. Urinary system: Both kidneys are normal in size, without hydronephrosis or nephrolithiasis on pre-contrast images. No perinephric fat stranding. There is normal bilateral renal enhancement. Renal calyces appear normal in morphology when filled with contrast. Opacified portions of both ureters demonstrate normal caliber. Mild bladder wall thickening with very mild trabeculations. Right posterior bladder wall diverticulum. No calcified bladder stones. Other solid organs: Liver is normal in size and enhancement. Gallbladder is unremarkable without calcified gallstones. . Biliary system is non dilated. Pancreas enhances normally. Spleen is normal in size and enhancement. No adrenal nodules. Peritoneum and bowel: Bowel loops demonstrate normal wall thickness and caliber. No free fluid or air. Nodes and vessels: No retroperitoneal or mesenteric adenopathy by size criteria. Aorta and inferior vena cava are normal in size. Abdominal wall: Fat containing umbilical hernia. Pelvis: No pathologic free pelvic fluid. No inguinal hernias or adenopathy. Bones: No suspicious bony lesions. No vertebral body compression fractures. IMPRESSION: 1. No renal stones, ureteral stones, hydronephrosis, or findings suspicious for malignancy. 2. Mild bladder wall thickening with very mild trabeculations and a right posterior diverticulum. Dictated by: Florian Drew M.D. on 11/26/2022 at 12:29 Approved by: Florian Drew M.D. on 11/26/2022 at 12:34
== END ==
PROVIDERS: PCP Family Medicine; Referring Provider Family Medicine; Visit Provider Family Medicine
DX: R31.0 Gross hematuria (principal); N32.3 Diverticulum of bladder
CPT/HCPCS: 74178; Q9967

== ENCOUNTER → 2022-12-05 09:12 | Outpatient (CLI) | payer OTHER, MEDICAID, SELFPAY | PROVIDERS: PCP Family Medicine; Visit Provider Urology | DX: N39.0 Urinary tract infection, site not specified (principal); N35.811 Other urethral stricture, male, meatal; N32.3 Diverticulum of bladder; N40.1 Benign prostatic hyperplasia with lower urinary tract symptoms; R39.14 Feeling of incomplete bladder emptying; R31.0 Gross hematuria; E11.9 Type 2 diabetes mellitus without complications; F17.200 Nicotine dependence, unspecified, uncomplicated | CPT/HCPCS: 51798; 81002; 87077; 87086; 87186; 99214 ==

== ENCOUNTER → 2022-12-11 09:36 | Outpatient (CLI) | payer OTHER, MEDICAID, SELFPAY | PROVIDERS: PCP Family Medicine; Visit Provider Urology | DX: Z01.818 Encounter for other preprocedural examination (principal); N32.3 Diverticulum of bladder; N30.01 Acute cystitis with hematuria; N35.811 Other urethral stricture, male, meatal; N40.1 Benign prostatic hyperplasia with lower urinary tract symptoms; R39.14 Feeling of incomplete bladder emptying; F17.200 Nicotine dependence, unspecified, uncomplicated | CPT/HCPCS: 81002; 87086; 99214 ==

== ENCOUNTER 2022-12-17 09:03 | Day surgery (SDC) | payer OTHER, MEDICAID, SELFPAY ==
[2022-12-12 14:54] VITALS: BMI 50.6
[2022-12-17] VITALS (7 sets, daily range): BP systolic 138–152; BP diastolic 69–92; PULSE 78–96; RESP 12–22; TEMP 36–36.4; O2SAT 92–98; BMI 51.3
[2022-12-17] MEDS: LACTATED RINGERS 1,000 ML 21 ML IV (09:52)
--- NOTE | 2022-12-17 10:18 | PM.PREOP ---
Pre-operative Note COVID-19 COVID-19 status: Not tested Criteria for continued procedure: Delay expected to result in less-positive ultimate med/surg outcome and Non-surgical alternatives not available or appropriate per current SOC Interval Note History & Physical reviewed/Exam performed by Physician: Yes Changes to H&P: No
--- NOTE | 2022-12-17 10:19 | P.OP_ITS ---
Procedure & Clinicians Procedure: Meatal dilation and cystoscopy with over the wire Villagomez catheter placement. Same procedure as scheduled: Yes Indications: This 52-year-old male came with complaints of profound bladder outlet obstruction irritation recurring urinary tract infections was found to have profound meatal stenosis that looks as if it has been longstanding. There were minimal changes of balanitis. He was found to have a urinary tract infection and is currently on culture specific antibiotics. He presents this time for meatal dilation possible meatal plasty and cystoscopy. Surgeon: Ricardo Stewart Click Yes if Unassisted: Yes Anesthesia Type: General Operative Notes Findings: Pin hole meatus with minimal inflammatory changes around it. In the distal 3rd of the urethra there are changes of chronic inflammation. The remainder of the urethra mucosa was normal. Sphincter was well coapted prostatic fossa shows minimal to moderate obstructive character. Ureteral orifices were normal position with clear efflux. The patient's bladder was drained of over 600 cc of clear yellow urine. And there were no mucosal abnormalities. The urethra was dilated to 26 and a 22 [place] catheter which had the tip cut off so as to make it a Councill tip catheter was passed over the wire into the bladder and left in good position. Closure Type: not applicable Specimen(s): none sent Applied: catheter ([address] catheter with the tip cut off converting it to a Councill tip catheter with 14 cc of sterile water in the balloon) Estimated Blood Loss (mL): 5 Blood products transfused: none Procedure in detail: Procedure in detail: After informed consent was obtained, the patient was identified and brought to the operating room where he was placed in a supine position on the table. The patient then had anesthesia induced and maintained. Showing an adequate level of anesthesia the patient was transitioned to the lithotomy position where he was prepped, draped, prepared for Transurethral procedure. Ensuring an adequate level of anesthesia and after prepping and draping as well as time-out a Amplatz extra stiff guidewire was passed through the urethra and coiled within the bladder with aid of a Wildwood catheter. Wildwood catheter was backed out and then using the cook S dilators the meatus was dilated from 10-20 Bur[place]ian. Then using Galindo sounds it was dilated from 22-26 [place]ian. The cystoscope was then passed along the wire visualizing the urethra prostate and into the bladder were cystoscopy was performed. This was after the bladder was drained of over 600 cc of clear yellow urine. Again the findings in hand the scope was backed out the bladder left full. The catheter was then passed over the wire after having trimmed the tip to allow passage of the wire through the lumen of the catheter. Once within the bladder the balloon was filled with 14 cc of sterile water and placed to gravity drainage. The patient tolerated the procedure well and at this point he was awakened transferred to the postanesthesia care unit for recovery. There were no complications the patient will go home with his Villagomez catheter keeping it for the next 10-14 days. Patient is to continue his antibiotics until they are gone. Post-operative Condition: stable Disposition: PACU Plan for aftercare: Discharge home with his Villagomez catheter follow-up my office 10-14 days
[2022-12-17] MEDS: CIPROFLOXACIN 400 MG/200 ML PIGGYBACK 200 MG IV (11:00)
--- NOTE | 2022-12-17 11:08 | SUR.OPER ---
Lithotomy on padded OR bed, head on pillow, arms secured on padded arm boards at <90 degrees abduction. Legs secured in padded yellow fins stirrups.
[2022-12-17] MEDS: fentaNYL 100 MCG/2 ML INJ IV (11:40)
[2022-12-17] MEDS: PHENAZOPYRIDINE 100 MG TABLET 200 MG PO (11:42)
[2022-12-17] MEDS: OXYBUTYNIN 5 MG TABLET PO (11:43)
[2022-12-17] MEDS: OXYCODONE/ACETAMINOPHEN 5/325 TABLET 1 TAB PO (12:17)
== END 2022-12-17 12:59 | disposition home or self-care (01) ==
PROVIDERS: PCP Family Medicine; Referring Provider Urology; Visit Provider Urology
PROC: 0TBD8ZZ Excision of Urethra, Via Natural or Artificial Opening Endoscopic (ICD-10-PCS; CPT 52000; principal; 2022-12-17 10:45)
DX: N35.911 Unspecified urethral stricture, male, meatal (principal); N39.0 Urinary tract infection, site not specified; N40.1 Benign prostatic hyperplasia with lower urinary tract symptoms; N13.8 Other obstructive and reflux uropathy; N32.3 Diverticulum of bladder; R31.0 Gross hematuria
CPT/HCPCS: 52281; 82962; J0744; J2405; J2704; J3010

== ENCOUNTER → 2023-01-29 09:04 | Outpatient (CLI) | payer OTHER, MEDICAID, SELFPAY | PROVIDERS: PCP Family Medicine; Visit Provider Urology | DX: R31.0 Gross hematuria (principal); N39.0 Urinary tract infection, site not specified; N32.3 Diverticulum of bladder; N35.811 Other urethral stricture, male, meatal; N40.1 Benign prostatic hyperplasia with lower urinary tract symptoms; R39.14 Feeling of incomplete bladder emptying | CPT/HCPCS: 51798; 81002; 87077; 87086; 87186; 99213 ==

== ENCOUNTER → 2023-03-04 06:52 | Outpatient (CLI) | payer OTHER, MEDICAID, SELFPAY ==
[2023-03-04 08:45] LABS: BUN Creatinine Ratio 21.7 (6-22); Blood Urea Nitrogen 18 mg/dL (9-20); Calcium 9.2 mg/dL (8.4-10.2); Carbon Dioxide 26 mmol/L (22-32); Chloride 102 mmol/L (98-107); Estimated Glomerular Filt Rate > 60 mL/min (>60); Glucose 150 mg/dL (70-100); HEMOLYSIS < 15 (0-50); Potassium 4.4 mmol/L (3.4-5.1); Sodium 136 mmol/L (137-145)
== END ==
PROVIDERS: PCP Family Medicine; Referring Provider Family Medicine; Visit Provider Family Medicine
DX: Z00.00 Encounter for general adult medical examination without abnormal findings (principal); I10 Essential (primary) hypertension; E11.9 Type 2 diabetes mellitus without complications
CPT/HCPCS: 36415; 80048; 83036

== ENCOUNTER → 2023-03-13 08:05 | Outpatient (CLI) | payer OTHER, MEDICAID, SELFPAY | PROVIDERS: PCP Family Medicine; Visit Provider Urology | DX: N40.1 Benign prostatic hyperplasia with lower urinary tract symptoms (principal); N39.0 Urinary tract infection, site not specified; N35.811 Other urethral stricture, male, meatal; N32.3 Diverticulum of bladder; F17.200 Nicotine dependence, unspecified, uncomplicated; Z87.898 Personal history of other specified conditions | CPT/HCPCS: 51798; 81002; 87077; 87086; 87186; 99213 ==

== ENCOUNTER → 2023-06-13 08:29 | Outpatient (CLI) | payer OTHER, MEDICAID, SELFPAY | PROVIDERS: PCP Family Medicine; Visit Provider Urology | DX: N39.0 Urinary tract infection, site not specified (principal); N40.1 Benign prostatic hyperplasia with lower urinary tract symptoms; N32.3 Diverticulum of bladder; R39.14 Feeling of incomplete bladder emptying; N35.811 Other urethral stricture, male, meatal; F17.200 Nicotine dependence, unspecified, uncomplicated; Z87.898 Personal history of other specified conditions | CPT/HCPCS: 51798; 81002; 87077; 87086; 87186; 99213 ==

== ENCOUNTER → 2023-07-03 08:48 | Outpatient (CLI) | payer OTHER, MEDICAID, SELFPAY ==
--- NOTE | 2023-07-03 08:49 | DI.RAD.S_ITS ---
PROCEDURE: XR SHOULDER RT MIN 2V INDICATIONS: R shoulder eval TECHNIQUE: 3 views of the shoulder were acquired. COMPARISON: None. FINDINGS: Bones: Mild motion artifact. No definite fractures or dislocations. No suspicious bony lesions. Visualized ribs appear intact. Mild degenerative changes of the right acromioclavicular joint. Coracoclavicular and acromioclavicular intervals are maintained. Soft tissues: No suspicious soft tissue calcifications. IMPRESSION: No acute bony abnormality. If there are persistent symptoms or clinical suspicion for pathology, then repeat radiographs or advanced imaging (CT or MRI) may be considered for further evaluation. Dictated by: Adelfo Messina M.D. on 07/03/2023 at 11:56 Approved by: Adelfo Messina M.D. on 07/03/2023 at 11:57
== END ==
PROVIDERS: PCP Family Medicine; Referring Provider Family Medicine; Visit Provider Family Medicine
DX: M25.511 Pain in right shoulder (principal)
CPT/HCPCS: 73030

== ENCOUNTER → 2023-08-20 10:12 | Outpatient (CLI) | payer OTHER, MEDICAID, SELFPAY ==
--- NOTE | 2023-08-20 10:15 | DI.CT.S_ITS ---
PROCEDURE: CT LUNG LOW DOSE SCREENING INDICATIONS: Lung cancer screening TECHNIQUE: Noncontrast 2.0-2.5 mm thick sections acquired from the pulmonary apices to the posterior costophrenic angles. 7 mm thick axial MIP, and 5 mm coronal and sagittal reformats were then acquired. For radiation dose reduction, the following was used: automated exposure control, adjustment of mA and/or kV according to patient size. COMPARISON: None. FINDINGS: Image quality: Diagnostic. Lower Neck: No enlarged lymph nodes. Thyroid: No thyroid nodules which require sonographic follow up, per consensus guidelines. Axillae: No enlarged lymph nodes. Chest Wall: Unremarkable. Bones: Unremarkable. Lungs and Pleura: No pneumothorax or pleural effusions. No consolidation or suspicious nodules. Heart: Heart size is normal. No pericardial effusion. Thoracic Vessels: The aorta and pulmonary arteries demonstrate normal size. Mediastinum and Marquita: No enlarged lymph nodes. Esophagus: No wall thickening. No hiatal hernia. Upper Abdomen: Visualized upper abdomen solid organs and bowel loops appear normal. IMPRESSION: No suspicious pulmonary nodules. LUNG-RADS 1; continued annual screening, if eligible. Clinically Significant Non-pulmonary Findings: None. Dictated by: Rajendra Hancock M.D. on 08/20/2023 at 12:35 Approved by: Rajendra Hancock M.D. on 08/20/2023 at 12:44
== END ==
PROVIDERS: PCP Family Medicine; Referring Provider Family Medicine; Visit Provider Family Medicine
DX: Z87.891 Personal history of nicotine dependence (principal); Z12.2 Encounter for screening for malignant neoplasm of respiratory organs
CPT/HCPCS: 71271

== ENCOUNTER → 2023-10-02 07:44 | Outpatient (CLI) | payer OTHER, MEDICAID, SELFPAY ==
[2023-10-02 08:49] LABS: Hemoglobin A1C% w Est Avg Glu 6.8 % (4.0-6.0)
[2023-10-02 08:59] LABS: Alanine Aminotransferase 33 IU/L (<50); Albumin Globulin Ratio 1.4 (1.0-2.8); Alkaline Phosphatase 70 U/L (38-126); Aspartate Aminotransferase 27 IU/L (17-59); BUN Creatinine Ratio 20.5 (6-22); Bilirubin Total 0.7 mg/dL (0.2-1.3); Blood Urea Nitrogen 17 mg/dL (9-20); Calcium 9.4 mg/dL (8.4-10.2); Carbon Dioxide 28 mmol/L (22-32); Chloride 103 mmol/L (98-107); Cholesterol 180 mg/dL (140-199); Estimated Glomerular Filt Rate > 60 mL/min (>60); Globulin 2.8 g/dL (1.7-4.1); Glucose 135 mg/dL (70-100); HDL Cholesterol 33 mg/dL (40-60); HEMOLYSIS < 15 (0-50); LDL Cholesterol Calculated 102 mg/dL (<100); Potassium 4.5 mmol/L (3.4-5.1); Sodium 137 mmol/L (137-145); Total Protein 6.8 g/dL (6.3-8.2); Triglycerides 223 mg/dL (35-150)
== END ==
PROVIDERS: PCP Family Medicine; Referring Provider Family Medicine; Visit Provider Family Medicine
DX: I10 Essential (primary) hypertension (principal); E11.9 Type 2 diabetes mellitus without complications; E78.2 Mixed hyperlipidemia
CPT/HCPCS: 36415; 80053; 80061; 83036

== ENCOUNTER → 2023-12-11 08:11 | Outpatient (CLI) | payer OTHER, MEDICAID, SELFPAY | PROVIDERS: PCP Family Medicine; Visit Provider Urology | DX: N40.1 Benign prostatic hyperplasia with lower urinary tract symptoms (principal); N35.811 Other urethral stricture, male, meatal; N39.0 Urinary tract infection, site not specified; R33.9 Retention of urine, unspecified; N32.3 Diverticulum of bladder | CPT/HCPCS: 51798; 81002; 87077; 87086; 87186; 99214 ==

== ENCOUNTER → 2024-01-06 07:34 | Outpatient (CLI) | payer OTHER, MEDICAID, SELFPAY ==
[2024-01-06 08:55] LABS: Hemoglobin A1C% w Est Avg Glu 7.1 % (4.0-6.0)
[2024-01-06 09:13] LABS: Alanine Aminotransferase 52 IU/L (<50); Albumin 4.2 g/dL (3.5-5.0); Albumin Globulin Ratio 1.5 (1.0-2.8); Alkaline Phosphatase 78 U/L (38-126); Aspartate Aminotransferase 34 IU/L (17-59); BUN Creatinine Ratio 23.4 (6-22); Bilirubin Total 0.6 mg/dL (0.2-1.3); Blood Urea Nitrogen 22 mg/dL (9-20); Calcium 9.4 mg/dL (8.4-10.2); Carbon Dioxide 30 mmol/L (22-32); Chloride 101 mmol/L (98-107); Estimated Glomerular Filt Rate > 60 mL/min (>60); Globulin 2.8 g/dL (1.7-4.1); Glucose 168 mg/dL (70-100); HEMOLYSIS < 15 (0-50); Potassium 5.2 mmol/L (3.4-5.1); Sodium 136 mmol/L (137-145)
== END ==
PROVIDERS: PCP Family Medicine; Referring Provider Family Medicine; Visit Provider Family Medicine
DX: N40.1 Benign prostatic hyperplasia with lower urinary tract symptoms (principal); E11.9 Type 2 diabetes mellitus without complications; E78.2 Mixed hyperlipidemia
CPT/HCPCS: 36415; 80053; 83036

== ENCOUNTER → 2024-03-03 08:18 | Outpatient (CLI) | payer OTHER, MEDICAID, SELFPAY | PROVIDERS: PCP Family Medicine; Visit Provider Urology | DX: N40.1 Benign prostatic hyperplasia with lower urinary tract symptoms (principal) | CPT/HCPCS: 87077; 87086; 87186 ==

== ENCOUNTER → 2024-09-01 08:13 | Outpatient (CLI) | payer OTHER, SELFPAY | PROVIDERS: PCP Family Medicine; Visit Provider Urology | DX: N40.1 Benign prostatic hyperplasia with lower urinary tract symptoms (principal); Z87.898 Personal history of other specified conditions | CPT/HCPCS: 51798; 81002; 87077; 87086; 87186; 99213 ==

== ENCOUNTER → 2024-09-07 06:58 | Outpatient (CLI) | payer OTHER, SELFPAY ==
[2024-09-07 08:35] LABS: Alanine Aminotransferase 42 IU/L (<50); Albumin 4.2 g/dL (3.5-5.0); Albumin Globulin Ratio 1.6 (1.0-2.8); Alkaline Phosphatase 79 U/L (38-126); Aspartate Aminotransferase 34 IU/L (17-59); BUN Creatinine Ratio 21.1 (6-22); Bilirubin Total 0.6 mg/dL (0.2-1.3); Blood Urea Nitrogen 19 mg/dL (9-20); Calcium 9.7 mg/dL (8.4-10.2); Carbon Dioxide 25 mmol/L (22-32); Chloride 100 mmol/L (98-107); Cholesterol 191 mg/dL (140-199); Estimated Glomerular Filt Rate > 60 mL/min (>60); Globulin 2.7 g/dL (1.7-4.1); Glucose 155 mg/dL (70-100); HDL Cholesterol 34 mg/dL (40-60); HEMOLYSIS < 15 (0-50); LDL Cholesterol Calculated 97 mg/dL (<100); Potassium 4.2 mmol/L (3.4-5.1); Sodium 136 mmol/L (137-145); Total Protein 6.9 g/dL (6.3-8.2); Triglycerides 300 mg/dL (35-150)
[2024-09-07 08:36] LABS: Hemoglobin A1C% w Est Avg Glu 6.2 % (4.0-6.0)
[2024-09-07 08:57] LABS: Prostate Specific Antigen 0.581 ng/mL (0.10-4.00)
== END ==
PROVIDERS: PCP Family Medicine; Referring Provider Family Medicine; Visit Provider Family Medicine
DX: E11.9 Type 2 diabetes mellitus without complications (principal); E78.2 Mixed hyperlipidemia; I10 Essential (primary) hypertension; N40.1 Benign prostatic hyperplasia with lower urinary tract symptoms; Z87.898 Personal history of other specified conditions
CPT/HCPCS: 36415; 80053; 80061; 83036; 84153

== ENCOUNTER → 2025-05-16 08:45 | Outpatient (CLI) | payer OTHER, SELFPAY | PROVIDERS: PCP Family Medicine; Visit Provider Urology | DX: N40.1 Benign prostatic hyperplasia with lower urinary tract symptoms (principal) | CPT/HCPCS: 87077; 87086 ==